=== PATIENT | male | born 2000 | race Hispanic/Latino ===

== ENCOUNTER 2022-04-13 20:02 | Emergency (ER) | payer OTHER ==
[~2022-04-13] VITALS: Ht 180.3 cm; Wt 99.8 kg
[2022-04-13] MEDS ORDERED: TETANUS/DIPHTHERIA TOX ADULT 0.5 ML SYR IM ONE (20:30)
[2022-04-13] MEDS ORDERED: TETANUS/DIPHTHERIA TOX ADULT 0.5 ML SYR ONE (20:36)
== END 2022-04-13 20:30 | disposition home or self-care (01) ==
LOC: ER 20:30
DX: S61.411A Laceration without foreign body of right hand, initial encounter (principal); W26.0XXA Contact with knife, initial encounter; Y92.89 Other specified places as the place of occurrence of the external cause
CPT/HCPCS: 90471; 90714; 99282